=== PATIENT | female | born 1960 | race Caucasian/White ===

== ENCOUNTER → 2022-09-13 | Outpatient (CLI) | payer OTHER, SELFPAY ==
--- NOTE | 2022-09-13 13:46 | BI_ITS ---
MAMMOGRAPHY - BILATERAL SCREENING REASON FOR EXAM: Female, 62 years old. Routine annual screening examination. PERTINENT HISTORY: Non-contributory. History of prior bilateral breast implants. TECHNIQUE: Digital bilateral breast shalini (3D mammographic acquisition) in the CC and MLO projections. 2-D mediolateral oblique (MLO) and craniocaudad (CC) views of both breasts were obtained. CAD: Full Field Digital Mammography with Computer Added Detection was performed. COMPARISON: Comparison is made with prior study dated February 06, 2013. FINDINGS: Breast Composition: There are scattered areas of fibroglandular density. There are no dominant masses or suspicious calcifications. Stable appearance of the bilateral breast implants. No other significant abnormalities are identified. There has been no significant change since the prior study. BI/SCRN MAMM (CAD)W/SHALINI BILAT IMPRESSION: Stable bilateral screening mammogram. Yearly follow-up mammogram recommended. (A) ASSESSMENT CATEGORY: BIRADS Category 2: Benign. A letter regarding these results will be sent to the patient by the facility within 30 days. Approximately 10% of breast cancers are not detected by mammography. A normal mammogram should not delay biopsy of a clinically suspicious abnormality. [id number] Electronically Signed: Jovanni Charles MD at 15:01 EDT ,
--- NOTE | 2022-09-13 13:53 | US_ITS ---
EXAM: US RETROPERITONEAL LIMITED, RENAL CLINICAL INDICATION: HISTORY OF HEMATURIA TECHNIQUE: Limited grayscale and color Doppler sonographic evaluation of the retroperitoneum was performed. COMPARISON: No relevant prior studies available. FINDINGS: RIGHT KIDNEY: Unremarkable. Right kidney measures 11.4 x 4.1 x 3.6 cm in diameter. Normal cortical echogenicity. No hydronephrosis. No shadowing calculus. No focal lesion. No perinephric collection is demonstrated. LEFT KIDNEY: Unremarkable. Left kidney measures 11.5 x 4.4 x 4.9 cm in diameter. Normal cortical echogenicity. No hydronephrosis. No shadowing calculus. No focal lesion. No perinephric collection is demonstrated. URINARY BLADDER: Bilateral ureteral jets are noted. Bladder wall thickness measures up to 3.9 mm. No bladder calculi or focal bladder wall mass. US/Kidney and Bladder IMPRESSION: Unremarkable renal ultrasound. No renal mass, renal calculus or hydronephrosis identified. Electronically Signed: Awais Cervantes MD at 22:49 EDT ,
== END | disposition home or self-care (01) ==
PROVIDERS: PCP Internal Medicine; Referring Provider Internal Medicine; Visit Provider Internal Medicine
DX: Z12.31 Encounter for screening mammogram for malignant neoplasm of breast (principal)
CPT/HCPCS: 76770; 77063; 77067

== ENCOUNTER → 2022-09-23 | Outpatient (CLI) | payer OTHER, SELFPAY ==
--- NOTE | 2022-09-23 12:32 | BD_ITS ---
STUDY: DUAL ENERGY X-RAY ABSORPTIOMETRY / DXA REASON FOR EXAM: Female, 62 years old. 627.8Menopausal postmenopausal BONE DENSITY REASON FOR EXAM TECHNIQUE: Bone Mineral Density (BMD) measurements of lumbar spine and bilateral hips were obtained. COMPARISON: None. FINDINGS: Lumbar Spine (L1-L4): g/cm2 (0.965) / T-score (-1.0) / Z-score (0.6) Findings are suggestive of normal bone density with a low fracture risk. Left Femur Total: g/cm2 (1.004) / T-score (0.5) / Z-score (1.6) Left Femoral Neck: g/cm2 (0.845) / T-score (0.0) / Z-score (1.3) Right Femur Total: g/cm2 (0.925) / T-score (-0.1) / Z-score (0.9) Right Femoral Neck: g/cm2 (0.784) / T-score (-0.6) / Z-score (0.8) BD/Dexa Bone Density Study IMPRESSION: The patient is considered normal as outlined below according to World [employer] Organization (WHO) criteria with a low fracture risk. Reference Information: The T-score is the number of standard deviations above or below the standard which is normal for young adults at their peak bone mineral density. The World Health Organization (WHO) interprets the T-scores as follows: Above -1 Normal bone density Between -1 and -2.5 Osteopenia Equal to / or below -2.5 Osteoporosis As a practical clinical guideline, osteopenia may be graded as follows: Mild -1 through -1.5 Moderate -1.6 through -2.0 Severe -2.1 through -2.4 The Z-score is the number of standard deviations above or below age-matched controls. A Z-score of less than -1.5 would be considered abnormal. References: 1. NIH Osteoporosis and Related Bone Diseases www osteo.org 2. International Society for Clinical Densitometry www iscd.org 3. National Osteoporosis Foundation www nof.org Electronically Signed: Jovanni Charles MD at 13:42 EDT ,
== END | disposition home or self-care (01) ==
LOC: OPBD 12:28
PROVIDERS: PCP Internal Medicine; Referring Provider Internal Medicine; Visit Provider Internal Medicine
DX: Z12.31 Encounter for screening mammogram for malignant neoplasm of breast (principal); Z78.0 Asymptomatic menopausal state; Z87.448 Personal history of other diseases of urinary system
CPT/HCPCS: 77080

== ENCOUNTER → 2024-01-11 | Outpatient (CLI) | payer OTHER, SELFPAY | END | disposition home or self-care (01) | PROVIDERS: PCP Internal Medicine; Referring Provider Internal Medicine; Visit Provider Internal Medicine | DX: Z12.31 Encounter for screening mammogram for malignant neoplasm of breast (principal) | CPT/HCPCS: 77063; 77067 ==

== ENCOUNTER → 2025-01-14 | Outpatient (CLI) | payer OTHER, SELFPAY ==
--- OUTSIDE RECORDS SUMMARY | 2025-01-14 12:52 | XMS RPT_ITS | CCD ---
Author Organization [facility] Care Team Providers Care Individual Small Group Instructor Name Role Phone Unavailable Primary Care Provider Unavailabl e Fast DO, Donita A Unavailable Ovidio RATTLING MACHINE TENDER, Brittney Unavailable Unavailable Fast DO, Donita A Attending Unavailable Fast DO, Donita A Consulting Unavailable Kamilah Jimenez MA Unavailable Unavailable Izabella Patrick Unavailable Slarb AIRLINE RESERVATION AGENT, Samia Unavailable Unavailable Fast DO, Dr. Duckworth Primary Care Provider Dr. Izabella Patrick MD Attending Provider Elmer DO, Dr. Duckworth Referring Provider Milla MOORE, Dr. Romero Attending Provider Fast, Donita Referring Unavailable Heather Loyola Attending Unavailable Fast, Donita Primary Care Unavailable Fast, Donita Referring Unavailable Fast, Donita Primary Care Unavailable Fast, Donita Attending Unavailable Allergies Allergy Classification Reported Allergen(s) Allergy Type Date of Onset Reaction(s) Facility (12 sources) Codeine Drug Allergy 03-18-19 09 Mental Status Change [facility] (2 sources) NITROFURANTOIN, MACROCRYSTALS / Nitrofurantoin, Monohydrate Drug Allergy 09-21-19 [facility] (9 sources) NITROFURANTOIN, MACROCRYSTALS / Nitrofurantoin, Monohydrate Drug Allergy [facility]; [facility] Work Phone: (1 source) Nitrofurantoin Drug Allergy 10-06-19 [facility] (1 source) Adhesive agent Drug allergy (disorder) 10-30-19 [facility] (1 source) Codeine Drug Allergy 10-06-19 [facility] (1 source) Nitrofurantoin Drug Allergy 10-06-19 [facility] Medications Current Medications Medication Drug Class(es) Dates Sig (Normalized) Sig (Original) Bacillus Coagulans-Vitamin D3 (Probiotic (With Vitamin D3)) 2 billion cell- 5 mcg tablet,chewable (1 source) Start: 08-21-2024 Bacillus Coagulans-Vitamin D3 (Probiotic (With Vitamin D3)) 2 billion cell- 5 mcg tablet,chewable Active {tbl} PO August 21, 2024 12:00am doxycycline hyclate 100 mg oral tablet (1 source) Tetracycline-clas s Drug Start: 09-20-2021 End: 09-30-2021 take 1 tablet by mouth twice daily doxycycline (VIBRA-TABS) 100 mg tablet Take 1 tablet by mouth twice daily for 10 days. 20 tablet 0 09/20/2021 09/30/2021 Active Comment on above: Take 1 tablet by [facility] twice daily for 10 days. 168 hr estradiol 0.0025 mg/hr transdermal system (5 sources) Estrogen Start: 10-05-2024 Estradiol 0.06 mg/24 hr patch weekly Active 1 NMA TD EVERY WEEK 4 October 05, 2024 12:00am Start: 02-04-2021 Estradiol (YUV AFEM) 10 mcg vaginal tablet USE 1 TABLET VAGINALLY twice weekly (Tuesday/) insert INTO LOWER 1/3 OF VAGINA 24 tablet 3 02/04/2021 Active Start: 02-04-2021 Estradiol (YUV AFEM) 10 mcg vaginal tablet Use 1 tablet vaginally two times a week. (Tuesday & ) at bedtime 8 tablet 0 02/04/2021 Active Comment on above: USE 1 TABLET VAGINAL LY twice weekly (Tuesday/) insert INTO LOWER 1/3 OF VAGINA Use 1 tablet vaginal ly two times a week. (Tuesday & ) at bedtime Estrogen (1 source) Start: 10-06-19 Estrogen Active PO October 05, 2024 12:00am predniSONE 20 mg oral tablet (1 source) Start: 09-21-19 End: 09-26-19 take 2 tablets by mouth once daily predniSONE (DELTASONE) 20 mg tablet Take 2 tablets by mouth once daily for 5 days. 10 tablet 0 09/20/2021 09/25/2021 Active Comment on above: Take 2 tablets by mo [facility] once daily for 5 days. Completed/Discontinued Medications Medication Drug Class(es) Dates Sig (Normalized) Sig (Original) [id number] 200 actuat albuterol 0.09 mg/actuat metered dose inhaler (2 sources) beta2-Adrenergic Agonist Start: 09-20-2021 take 2 puff(s) by inhalation every six hours as needed albuterol HFA (PROAIR HFA) 90 mcg/actuation inhaler Inhale 2 Puffs as instructed every 6 hours as needed. 1 Inhaler 0 09/20/2021 Active Comment on above: Inhale 2 Puffs as in structed every 6 hours as needed. cholecalciferol 0.05 mg oral capsule (11 sources) Vitamin D Start: 08-26-2014 take 1 capsule by mouth once daily, then take 1 capsule by mouth once daily Cholecalciferol, Vitamin D3, 2,000 unit cap Indications: Perimenopause Take 1 capsule by mouth once daily. one po daily 90 capsule 4 08/26/2014 Active take 1 tablet by mouth once marcelino y Vitamin D3 125 mcg (5,000 unit) oral tablet qd (125 mcg (5,000 uni) Inactive Comment on above: Take 1 capsule by [facility] once daily. one po daily dextromethorphan hydrobromide 3 mg/ml / promethazine hydrochloride 1.25 mg/ml oral solution (2 sources) Phenothiazine, Uncompetitive E-bkybjp-Y-aspartate Receptor Antagonist, Sigma-1 Agonist Start: 022 take 5 mL by mouth every six hours as needed Promethazine-DM (PHENERGAN-DM) 6.25-15 mg/5 mL syrup Take 5 mL by mouth four times daily as needed. 120 mL 0 09/20/2021 Active Comment on above: Take 5 mL by mouth f our times daily as needed. Lactobacillus acidophilus (2 sources) LACTOBACILLUS ACIDOPHILUS (PROBIOTIC ORAL) Take by mouth once daily. 0 Active Comment on above: Take by mouth once d aily. metroNIDAZOLE 500 mg oral tablet (2 sources) Nitroimidazole Antimicrobial Start: 020 take 1 tablet by mouth twice daily, then take 1 tablet by mouth twice daily metroNIDAZOLE (FLAGYL) 500 mg tablet Indications: BV (bacterial vaginosis) Take 1 tablet by mouth twice daily. ONE PO BID FOR VAGINOSIS (NO ALCOHOL USE) 14 tablet 0 11/23/2019 Active Comment on above: Take 1 tablet by [facility] twice daily. ONE PO BID FOR VAGINOSIS (NO ALCOHOL USE) Probiotic 3 billion cell oral capsule (9 sources) take 3 capsules by mouth once daily Probiotic 3 billion cell oral capsule qd (3 billion cell) Active progesterone 100 mg oral capsule (3 sources) Progesterone Start: 025 End: take 1 capsule by mouth once daily Progesterone Micronized 100 mg capsule Discontinued 100 mg PO EVERY EVENING October 05, 2024 4:14pm October 05, 2024 4:15pm take nightly valACYclovir 1000 mg oral tablet (6 sources) Herpesvirus Nucleoside Analog DNA Polymerase Inhibitor, Herpes Simplex Virus Nucleoside Analog DNA Polymerase Inhibitor, Herpes Zoster Virus Nucleoside Analog DNA Polymerase Inhibitor Start: Valtrex 1 gram oral tablet 2 (two) tablet po at onset , then can repeat another tab in 12 hrs for 0 days Quantity: 20 {Tablet} Refills: 1 Ordered: 08-Oct-2022 Brittney Nolan CMA Start : 08-Oct-2022 Active Start: 02-04-2021 take 1 tablet by [facility] twice daily valACYclovir (VALTREX) 500 mg tablet Indications: Cold sores Take 1 tablet by mouth twice daily. FOR 5 DAYS. 10 tablet 5 02/04/2021 Active Comment on above: Take 1 tablet by [facility] twice daily. FOR 5 DAYS. Problems Active Problems Problem Classification Problem Date Documented Date Episodic/Chronic Benign neoplasm of uterus (4 sources) Uterine leiomyoma; Translations: [Leiomyoma of uterus, unspecified] Onset: 10-16-2014 08-26-2014 Episodic Chronic obstructive pulmonary disease and bronchiectasis (1 source) Bronchitis; Translations: [Bronchitis, not specified as acute or chronic] Episodic Disorders of lipid metabolism (2 sources) Hyperlipidemia; Translations: [Hyperlipidemia, unspecified] 08-26-2014 Chronic Endometriosis (2 sources) Uterine adenomyosis; Translations: [Endometriosis of uterus] 10-17-2014 Chronic Genitourinary symptoms and ill-defined conditions (14 sources) History of hematuria; Translations: [History of hematuria] 09-06-2022 Episodic Immunizations and screening for infectious disease (14 sources) Patient encounter status; Translations: [Screening for HPV (human papillomavirus) (Renamed from Encounter for screening for human papillomavirus (HPV))] Resolved: 11-12-2022 09-06-2022 Episodic Inflammatory diseases of female pelvic organs (2 sources) Bacterial vaginosis; Translations: [Acute vaginitis] 11-23-2019 Episodic Menopausal disorders (3 sources) Menopausal symptom; Translations: [Menopausal and female climacteric states] Onset: 08-21-2014 08-26-2014 Chronic Other diseases of bladder and urethra (14 sources) Polyp of urethra; Translations: [Urethral polyp] 09-06-2022 Episodic Other female genital disorders (14 sources) History of abnormal cervical Papanicolaou smear ; Translations: [History of abnormal cervical Pap smear] 09-06-2022 Episodic Other nutritional; endocrine; and metabolic disorders (20 sources) Hypercalcemia; Translations: [Hypercalcemia] Resolved: 11-14-2022 07-07-2022 Chronic Other screening for suspected conditions (not mental disorders or infectious disease) (20 sources) Breast neoplasm screening status; Translations: [Encounter for screening mammogram for malignant neoplasm of breast] Onset: 08-21-2014 08-21-2014 Episodic Comment on above: discusse diet ane ex her myeloperoxidase high too so want her to get cardiac calcium score Other skin disorders (19 sources) Night sweats; Translations: [Night sweats] 07-06-2022 Episodic Comment on above: discussed hormone re placement options Residual codes; unclassified (20 sources) Body mass index 20-24 - normal; Translations: [BMI 24.0-24.9, adult] 07-06-2022 Episodic Residual codes; unclassified (20 sources) Non-smoker; Translations: [Nonsmoker] 07-06-2022 Episodic Residual codes; unclassified (14 sources) Postmenopausal state; Translations: [Postmenopausal (Renamed from Postmenopausal status)] Resolved: 11-12-2022 09-06-2022 Episodic Unclassified (20 sources) Unclassified (6 sources) [facility] WELLNESS EXAM 11-12-2022 Viral infection (8 sources) Herpes labialis; Translations: [Cold sore] 10-08-2022 Episodic Past or Other Problems Problem Classification Problem Date Documented Da te Episodic/Chronic Residual codes; unclassified (2 sources) Menopause present; Translations: [Asymptomatic menopausal state] Onset: 02-04-2021 02-04-2021 Episodic Unclassified (9 sources) Pregnancies (); Translations: [Pregnancies ()] 07-06-2022 Comment on above: 3 c-sections (daught ers) NEGATED: Highlighted row has been ruled out!Unclassified (3 sources) Problem Onset: 07-06-2022 07-06-2022 Results Test Name Value Interpretation Reference Range Facility Video System Repairer Office Visit Reporton 10-05-2024 Video System Repairer Office Visit Report [facility]'s [address], [address] [place] [address] OFFICE VISIT Date of Service: 10/05/24 MR#: [id number] Acct: [id number] Name: EM CONTRERAS Rep #: [id number] : 1960 Provider: Dr. Heather de jesus MD Age/Sex: 64/F [place] [facility] [place] Status: Signed Intake Vital Signs 10/05/24 14:59 Height 5 ft 6 in Weight: 155 lb BMI 25.0 BP 136/80 H Intake Visit Reasons: HRT Consult Oil Spot Washer Required: No Is patient in pain?: No Allergies codeine Allergy (Severe, Verified 10/05/24 15:00) Vomiting nitrofurantoin (From Macrobid) Allergy (Severe, Verified 10/05/24 15:00) Hives Medications ???Medication ???Instructions ???Recorded ???Confirmed ???Type Bacillus coagulans 2 billion tab PO 08/21/24 10/05/24 History cell-vitamin D3 5 mcg chewable tablet (Probiotic (with Vitamin D3)) Estrogen PO 10/05/24 10/05/24 History estradiol 0.06 mg/24 hr weekly 1 patch transdermal QWEEK #4 10/0510/05/24 Rx transdermal patch patches progesterone micronized 100 mg 100 mg PO QPM #30 caps 10/05/24 Rx capsule Is last menstrual period known: No Post menopausal: Yes Patient : No : No PFSH Surgical History H/O blepharoplasty Family History Mother Arthritis Parkinson disease Social History household members: spouse number of children: 3 current occupational status: retired Smoking Status: Never smoker alcohol intake: current alcohol intake frequency: 0-2 drinks per day Alcohol type: wine substance use type: does not use what type of physical activity do you participate in: other details: tennis, pickleball, golf, lifting frequency: daily seatbelt use: always do you feel safe at home: Yes additional social history: - Wilian HPI HRT Consult Details: EM CONTRERAS is a 64 year old who presents for hormonally feeling out of balance. she was 58 when she went through menopause. she was 58 when she had her last menses. She used to see Dr Hernandez. she had not been on HRT, and she talked about bioidentical HRT starting a year ago was having vasomotor symptoms and weight increases so she went on bioHRT by dr payne estrogen testosterone and progesterone. she is having a reduction in symptoms. she has gained ten pounds in the lsat year or two. she is wanting to improve symptoms in multiple organ systems and has been happy with her results on the bioidentical hormones but is open to trying something else if it is more safe and recommended. Female Reproductive History Menopausal Symptoms: No night sweats History 3 Elective abortions Hx Para 3 Spontaneous abortions Hx # Term Pregnancies Ectopic pregnancies Hx # Pregnancies Multiple births # of living children 3 Past Pregnancies Del. Date Name GA/Weeks Outcome Route Bth Weight Infant Gen Labor Lgth Anesthesia Del Locatn Provider FOB Unknown 1982 Kassie Unknown 1986 Ashley Unknown 1987 Alie ROS Const Constitutional: Denies fatigue, night sweats, weight gain or weight loss ENT ENT: Reports system reviewed and no additional complaints, except as documented Cardio Card: Denies chest pain Resp Resp: Denies cough or dyspnea GI GI: Reports as per HPI; Denies abdominal pain, constipation, nausea or vomiting : Denies nipple discharge, urinary frequency, urinary incontinence, urinary hesitancy, urinary urgency, vaginal discharge, vaginal dryness, vaginal odor or vaginal pruritus Musc Musc: Denies arthralgias, back pain or muscle weakness Skin Skin/Breast: Denies alopecia, change in hair, dry skin, breast mass, breast pain, breast skin changes or nipple discharge Neuro Neuro: Reports system reviewed and no additional complaints, except as documented Psych Psych: Reports system reviewed and no additional complaints, except as documented Endo Endo: Denies cold intolerance, excessive sweating, heat intolerance or polydipsia Ahmet/Lymph Hematologic/Lymphatic: Denies easy bleeding, Denies easy bruising and Denies lymphadenopathy Exam Const General: cooperative, healthy appearing, comfortable and no acute distress Orientation: alert HENMT Head: normal to inspection and normocephalic Ears: hearing grossly normal bilaterally and external ears normal Nose: external nose normal and nares normal Face and sinus: normal facial exam Neck Neck: normal visual inspection and no lymphadenopathy Thyroid: thyroid normal Chest Chest palpation inspection: normal inspection of the chest Resp Effort Inspection: normal respiratory effort Auscultatio (more content not included)... Normal [facility] SCRN MAMM (CAD)W/SHALINI BILATo n 01-11-2024 SCRN MAMM (CAD)W/SHALINI BILAT [facility] Imaging Services [address] [place] [address] [id number] SCRN MAMM (CAD)W/SHALINI BILAT MR#: [id number] Acct: [id number] Name: EM CONTRERAS Rep #: [id number] : 1960 F 63 From: Jovanni bustos MD PCP: Dr. Donita Payne DO Status: REG [facility] Study: SCRN MAMM (CAD)W/SHALINI BILAT Date of Exam: 12/23 Exam# [id number] [place]: [place] [id number] MAMMOGRAPHY - BILATERAL SCREENING REASON FOR EXAM: Female, 63 years old. Routine annual screening examination. PERTINENT HISTORY: Non-contributory. Bilateral breast implants. TECHNIQUE: Digital bilateral breast shalini (3D mammographic acquisition) in the CC and MLO projections. 2-D mediolateral oblique (MLO) and craniocaudad (CC) views of both breasts were obtained. CAD: Full Field Digital Mammography with Computer Added Detection was performed. COMPARISON: Comparison is made with prior study September 13, 2022. FINDINGS: Breast Composition: There are scattered areas of fibroglandular density. There are no dominant masses or suspicious calcifications. Stable bilateral breast implants. Stable benign-appearing left axillary lymph node. No other significant abnormalities are identified. There has been no significant change since the prior study. BI/SCRN MAMM (CAD)W/SHALINI BILAT IMPRESSION: Stable bilateral screening mammogram. Yearly follow-up mammogram recommended. (A) ASSESSMENT CATEGORY: BIRADS Category 2: Benign. A letter regarding these results will be sent to the patient by the facility within 30 days. Approximately 10% of breast cancers are not detected by mammography. A normal mammogram should not delay biopsy of a clinically suspicious abnormality. [id number] Electronically Signed: Jovanni Charles MD at 11:22 EST , CC: Dr. Donita Payne, Kiosk Sales Representative: Signed Normal [facility] HPV automatic ([id number])Ordered By: Purse Maker on 09-06-2022 HPV automatic ([id number]) [facility] Normal [facility]; [facility] Work Phone: Comment on above: NEGATIVE FOR INTRAEP ITHELIAL LESION OR MALIGNANCY.Satisfactory for evaluation. Endocervical and/or squamous metaplasticcells (endocervical component) are present.Z11.51Susan Dorantes Senior Ssis Developer (ASCP) No. of containers..0 1 ThinPrep VialPERFORMED BY: WB [facility] [address] [id number] BY: =G [facility] [address] [id number] Information: [id number] HPV automatic ([id number]) . Normal [facility]; [facility] Work Phone: Comment on above: No. of containers..0 1 ThinPrep VialPERFORMED BY: WB [facility] Wrdoitcpzq[address] [id number] BY: =G [facility] Xx[address]ax[address] PlazaFab[address] [id number] Information: [id number] HPV automatic (23539) PAPSMR Normal [facility]; [facility] Work Phone: Comment on above: The Pap smear is a s creening test designed to aid in the detection ofpremalignant and malignant conditions of the uterine cervix. It is not adiagnostic procedure and should not be used as the sole means of detectingcervical cancer. Both false-positive and false-negative reports do occur. .This liquid based ThinPrep(R) pap test was screened with theuse of an image guided system. No. of containers..0 1 ThinPrep VialPERFORMED BY: WB [facility] Gdchuogksp[address] [id number] BY: =G [facility] [address] PlazaFab[address] [id number] Information: [id number] HPV automatic (45944) Negative Normal [facility]; [facility] Work Phone: Comment on above: This nucleic acid am plification test detects fourteen high- riskHPV types (16,18,31,33,35,39,45,51,52,56,58,59,66,68) withoutdifferentiation. No. of containers..0 1 ThinPrep VialPERFORMED BY: WB [facility] X[address]vjc[address] [id number] BY: =G [facility] [address] [place] [id number] Information: [id number] URINE TASIA CULTURE-IDENTIFICA [place] ([id number])Ordered By: Purse Maker on 09-06-2022 Bacteria identified Cx Nom (U) Final report Normal [facility]; [facility] Work Phone: Comment on above: PERFORMED BY: [facility] [id number] Information: SRC:UR Bacteria identified Cx Nom (U) MUG Normal [facility]; [facility] Work Phone: Comment on above: Mixed urogenital felipe ra10,000-25,000 colony forming units per mL PERFORMED BY: [facility] [id number] Information: SRC:UR Urinalysis, Office ([id number])on 09-06-2022 Bilirubin Ql (U) Negative Normal Comprehe nsive [facility]; [facility] Work Phone: Glucose Test strip (U) [Mass/Vol] Negative Normal [facility]; [facility] Work Phone: Hemoglobin Ql (U) + Abnormal Compreh ensive [facility]; [facility] Work Phone: Ketones Ql (U) Negative Normal Comprehens ev [facility]; [facility] Work Phone: Leukocyte esterase Test strip Ql (U) Moderate Normal [facility]; [facility] Work Phone: Nitrite Ql (U) Negative Normal [facility]prehens [facility]; [facility] Work Phone: pH (U) 6.0 [pH] Normal [facility]; [facility] Work Phone: Protein Ql (U) Negative Normal Comprehens [facility]; [facility] Work Phone: Specific gravity (U) [Rel density] 1.010 1 Normal [facility]; [facility] Work Phone: Urobilinogen (24H U) [Mass/Time] Normal Normal [facility]; [facility] Work Phone: CBC, PLATELETS & MANUAL DIFF ([id number])Ordered By: Purse Maker on 09-03-2022 Basophils (Bld) [#/Vol] 0.0 10*3/uL Normal 0.0-0.2 [facility]; [facility] Work Phone: Comment on above: PATIENT NOT FASTINGP ERFORMED BY: CB [facility] Meocfx[address] [place] [id number] Basophils/100 WBC (Bld) 1 % Normal [facility]; [facility] Work Phone: Comment on above: PATIENT NOT FASTINGP ERFORMED BY: CB [facility] Mousdj[address] [place] [id number] Eosinophils (Bld) [#/Vol] 0.2 10*3/uL Normal 0.0-0.4 [facility]; [facility] Work Phone: Comment on above: PATIENT NOT FASTINGP ERFORMED BY: CB [facility] [id number] [place] [id number] Eosinophils/100 WBC (Bld) 4 % Normal [facility]; [facility] Work Phone: Comment on above: PATIENT NOT FASTINGP ERFORMED BY: CB [facility] [id number] [place] [id number] Erythrocyte distribution width (RBC) [Ratio] 12.3 % Normal 11.7-15.4 [facility]; [facility] Work Phone: Comment on above: PATIENT NOT FASTINGP ERFORMED BY: CB [facility] Dwjatr[address] [place] [id number] Hematocrit (Bld) [Volume fraction] 40.7 % Normal 34.0-46.6 [facility]; [facility] Work Phone: Comment on above: PATIENT NOT FASTINGP ERFORMED BY: CB [facility] [id number] [place] [id number] Hemoglobin (Bld) [Mass/Vol] 13.4 g/dL Normal 11.1-15.9 [facility]; [facility] Work Phone: Comment on above: PATIENT NOT FASTINGP ERFORMED BY: CB [facility] Vtenpo[address] [place] [id number] Immature granulocytes (Bld) [#/Vol] 0.0 10*3/uL Normal 0.0-0.1 [facility]; [facility] Work Phone: Comment on above: PATIENT NOT FASTINGP ERFORMED BY: VALORIE Torres[address]Dublin [place] [id number] Immature granulocytes/100 WBC (Bld) 0 % Normal [facility]; [facility] Work Phone: Comment on above: PATIENT NOT FASTINGP ERFORMED BY: CB [facility] Ljkjut[address] [place] [id number] Lymphocytes (Bld) [#/Vol] 1.4 10*3/uL Normal 0.7-3.1 [facility]; [facility] Work Phone: Comment on above: PATIENT NOT FASTINGP ERFORMED BY: VALORIE [facility] Ejdscm[address] RoadFormerly [facility] Carein [place] [id number] Lymphocytes/100 WBC (Bld) 32 % Normal [facility]; [facility] Work Phone: Comment on above: PATIENT NOT FASTINGP ERFORMED BY: [facility] Awknva[address] [facility] [place] [id number] MCH (RBC) [Entitic mass] 32.1 pg Normal 26.6-33.0 [facility]; [facility] Work Phone: Comment on above: PATIENT NOT FASTINGP ERFORMED BY: [facility] Stxlzv[address] [facility] [place] [id number] MCHC (RBC) [Mass/Vol] 32.9 g/dL Normal 31.5-35.7 [facility]; [facility] Work Phone: Comment on above: PATIENT NOT FASTINGP ERFORMED BY: CB [facility] [id number] [facility] HospitalDublin [place] [id number] MCV (RBC) [Entitic vol] 97 fL Normal 79-97 [facility]; [facility] Work Phone: Comment on above: PATIENT NOT FASTINGP ERFORMED BY: CB [facility] Izlqfb4[address] RoadDublin [place] [id number] Monocytes (Bld) [#/Vol] 0.3 10*3/uL Normal 0.1-0.9 [facility]; [facility] Work Phone: Comment on above: PATIENT NOT FASTINGP ERFORMED BY: VALORIE Labcoclaudine TorresKbyzsh7357 Camp RoadDublin [place] [id number] Monocytes/100 WBC (Bld) 8 % Normal [facility]; [facility] Work Phone: Comment on above: PATIENT NOT FASTINGP ERFORMED BY: CB [facility] Qcyzeo0102 [address] RoadDublin [place] [id number] Neutrophils (Bld) [#/Vol] 2.4 10*3/uL Normal 1.4-7.0 [facility]; [facility] Work Phone: Comment on above: PATIENT NOT FASTINGP ERFORMED BY: [facility] Goleum3[address]Dublin [place] [id number] Neutrophils/100 WBC (Bld) 55 % Normal [facility]; [facility] Work Phone: Comment on above: PATIENT NOT FASTINGP ERFORMED BY: [facility] Anrimm5[address] RoadDublin [place] [id number] Platelets (Bld) [#/Vol] 212 10*3/uL Normal 150-450 [facility]; [facility] Work Phone: Comment on above: PATIENT NOT FASTINGP ERFORMED BY: CB [facility] Uobqsq2933 [address] RoadDublin [place] [id number] RBC (Bld) [#/Vol] 4.18 10*6/uL Normal 3.77-5.28 Compr ehensive [facility]; [facility] Work Phone: Comment on above: PATIENT NOT FASTINGP ERFORMED BY: CB [facility] Yzjsvy8522 [address] RoadDublin [place] [id number] WBC (Bld) [#/Vol] 4.3 10*3/uL Normal 3.4-10.8 Compre hensive [facility]; [facility] Work Phone: Comment on above: PATIENT NOT FASTINGP ERFORMED BY: CB [facility] Cuihhl025[address]Dublin [place] [id number] METABOLIC PANEL, COMPREHENSI VE ([id number])Ordered By: Purse Maker on 09-03-2022 Albumin [Mass/Vol] 4.5 g/dL Normal 3.9-4.9 [facility]; [facility] Work Phone: Comment on above: Please note refere nce interval change PATIENT NOT FASTINGP ERFORMED BY: CB [facility] Htimgs23[address]Dublin [place] [id number] Albumin/Globulin [Mass ratio] 2.0 {ratio} Normal 1.2-2.2 [facility]; [facility] Work Phone: Comment on above: PATIENT NOT FASTINGP ERFORMED BY: CB [facility] Pnfpah0595 [address] RoadDublin [place] [id number] ALP [Catalytic activity/Vol] 73 U/L Normal 44-121 [facility]; [facility] Work Phone: Comment on above: PATIENT NOT FASTINGP ERFORMED BY: CB [facility] Tolfxt7[address] RoadDublin [place] [id number] ALT [Catalytic activity/Vol] 12 U/L Normal 0-32 [facility]; [facility] Work Phone: Comment on above: PATIENT NOT FASTINGP ERFORMED BY: CB [facility] Edkudk3268 [address] RoadDublin [place] [id number] AST [Catalytic activity/Vol] 21 U/L Normal 0-40 [facility]; [facility] Work Phone: Comment on above: PATIENT NOT FASTINGP ERFORMED BY: CB [facility] Bopxjz8500 [address] RoadDublin [place] [id number] Bilirubin [Mass/Vol] 0.7 mg/dL Normal 0.0-1.2 [facility]; [facility] Work Phone: Comment on above: PATIENT NOT FASTINGP ERFORMED BY: CB [facility] Gonypq5446 [address] RoadDublin [place] [id number] Calcium [Mass/Vol] 9.6 mg/dL Normal 8.7-10.3 [facility]; [facility] Work Phone: Comment on above: PATIENT NOT FASTINGP ERFORMED BY: VALORIE Labcoclaudine Cdszff4[address] RoadDublin [place] [id number] Chloride [Moles/Vol] 104 mmol/L Normal 96-106 [facility]; [facility] Work Phone: Comment on above: PATIENT NOT FASTINGP ERFORMED BY: CB [facility] Qnmkke9[address] RoadDublin [place] [id number] CO2 [Moles/Vol] 24 mmol/L Normal 20-29 Comprehen [facility]; [facility] Work Phone: Comment on above: PATIENT NOT FASTINGP ERFORMED BY: VALORIE Labcoclaudine EsquedaDpppjj5486 [address] RoadDublin [place] [id number] Creatinine [Mass/Vol] 0.99 mg/dL Normal 0.57-1.00 [facility]; [facility] Work Phone: Comment on above: PATIENT NOT FASTINGP ERFORMED BY: VALORIE [facility] Oveofl04[address] RoadDublin [place] [id number] GFR/1.73 sq M.predicted among non-blacks MDRD (S/P/Bld) [Vol rate/Area] 64 mL/min/{1.73_m2} Normal Comprehensiv e [facility]; [facility] Work Phone: Comment on above: PATIENT NOT FASTINGP ERFORMED BY: VALORIE [facility] Vtprqy3485 [address] RoadDublin [place] [id number] Globulin (S) [Mass/Vol] 2.3 g/dL Normal 1.5-4.5 [facility]; [facility] Work Phone: Comment on above: PATIENT NOT FASTINGP ERFORMED BY: CB [facility] Ngoclf0337 [address] RoadDublin [place] [id number] Glucose [Mass/Vol] 91 mg/dL Normal 70-99 [facility]; [facility] Work Phone: Comment on above: PATIENT NOT FASTINGP ERFORMED BY: CB [facility] Extpaq9[address] RoadDublin [place] [id number] Potassium [Moles/Vol] 4.5 mmol/L Normal 3.5-5.2 [facility]; [facility] Work Phone: Comment on above: PATIENT NOT FASTINGP ERFORMED BY: VALORIE Torres6370 [facility] [id number] Protein [Mass/Vol] 6.8 g/dL Normal 6.0-8.5 [facility]; [facility] Work Phone: Comment on above: PATIENT NOT FASTINGP ERFORMED BY: VALORIE [facility] Czizoy6120 [facility] [id number] Sodium [Moles/Vol] 141 mmol/L Normal 134-144 [facility]; [facility] Work Phone: Comment on above: PATIENT NOT FASTINGP ERFORMED BY: VALORIE Tyrell Ejsbgj3017 [facility] [id number] Urea nitrogen [Mass/Vol] 16 mg/dL Normal 8-27 [facility]; [facility] Work Phone: Comment on above: PATIENT NOT FASTINGP ERFORMED BY: VALORIE [facility] Wtltqf9600 [facility] [id number] Urea nitrogen/Creatini ne [Mass ratio] 16 mg/mg Normal 12-28 [facility]; [facility] Work Phone: Comment on above: PATIENT NOT FASTINGP ERFORMED BY: VALORIE [facility] Rsibna6601 [facility] [id number] CBC, PLATELETS & MANUAL DIFF ([id number])Ordered By: Purse Maker on 07-06-2022 Basophils (Bld) [#/Vol] 0.0 10*3/uL Normal 0.0-0.2 [facility]; [facility] Work Phone: Comment on above: PATIENT WAS FASTINGP ERFORMED BY: VALORIE [facility] Zezxbw1005 [facility]in [place] [id number] Basophils/100 WBC (Bld) 1 % Normal [facility]; [facility] Work Phone: Comment on above: PATIENT WAS FASTINGP ERFORMED BY: [facility] Ywdish7[address]Dublin [place] [id number] Eosinophils (Bld) [#/Vol] 0.1 10*3/uL Normal 0.0-0.4 [facility]; [facility] Work Phone: Comment on above: PATIENT WAS FASTINGP ERFORMED BY: [facility] Kgohbe7[address] RoadD[address] [place] [id number] Eosinophils/100 WBC (Bld) 2 % Normal [facility]; [facility] Work Phone: Comment on above: PATIENT WAS FASTINGP ERFORMED BY: [facility] Pxuyue5[address] RoadD[place] [id number] Erythrocyte distribution width (RBC) [Ratio] 12.2 % Normal 11.7-15.4 [facility]; [facility] Work Phone: Comment on above: PATIENT WAS FASTINGP ERFORMED BY: [facility] Hlxsdv6[address] RoadFormerly [facility] Carein [place] [id number] Hematocrit (Bld) [Volume fraction] 41.4 % Normal 34.0-46.6 [facility]; [facility] Work Phone: Comment on above: PATIENT WAS FASTINGP ERFORMED BY: [facility] Sphliu93[address] Roadblin [place] [id number] Hemoglobin (Bld) [Mass/Vol] 14.4 g/dL Normal 11.1-15.9 [facility]; [facility] Work Phone: Comment on above: PATIENT WAS FASTINGP ERFORMED BY: [facility] Ybokmg3473 [address] RoadDublin [place] [id number] Immature granulocytes (Bld) [#/Vol] 0.0 10*3/uL Normal 0.0-0.1 [facility]; [facility] Work Phone: Comment on above: PATIENT WAS FASTINGP ERFORMED BY: [facility] Yubqkk6301 [address] RoadD[place] [id number] Immature granulocytes/100 WBC (Bld) 0 % Normal [facility]; [facility] Work Phone: Comment on above: PATIENT WAS FASTINGP ERFORMED BY: [facility] Irmgta0597 [address] RoadD[place] [id number] Lymphocytes (Bld) [#/Vol] 1.6 10*3/uL Normal 0.7-3.1 [facility]; [facility] Work Phone: Comment on above: PATIENT WAS FASTINGP ERFORMED BY: [facility] Oqsuou97[address] RoadDublin [place] [id number] Lymphocytes/100 WBC (Bld) 34 % Normal [facility]; [facility] Work Phone: Comment on above: PATIENT WAS FASTINGP ERFORMED BY: [facility] Ahxnyv4837 [address] RoadD[place] [id number] MCH (RBC) [Entitic mass] 32.7 pg Normal 26.6-33.0 [facility]; [facility] Work Phone: Comment on above: PATIENT WAS FASTINGP ERFORMED BY: [facility] Vvqvfc4975 [address] RoadDublin [place] [id number] MCHC (RBC) [Mass/Vol] 34.8 g/dL Normal 31.5-35.7 [facility]; [facility] Work Phone: Comment on above: PATIENT WAS FASTINGP ERFORMED BY: [facility] Qgbirl6179 [address] RoadD[place] [id number] MCV (RBC) [Entitic vol] 94 fL Normal 79-97 [facility]; [facility] Work Phone: Comment on above: PATIENT WAS FASTINGP ERFORMED BY: [facility] Kklcqe1512 [address] RoadD[place] [id number] Monocytes (Bld) [#/Vol] 0.6 10*3/uL Normal 0.1-0.9 [facility]; [facility] Work Phone: Comment on above: PATIENT WAS FASTINGP ERFORMED BY: [facility] Usnuck6959 [address] RoadD[place] [id number] Monocytes/100 WBC (Bld) 12 % Normal [facility]; [facility] Work Phone: Comment on above: PATIENT WAS FASTINGP ERFORMED BY: VALORIE [facility] Tgpycj6644 [address] RoadD[address] [place] [id number] Neutrophils (Bld) [#/Vol] 2.4 10*3/uL Normal 1.4-7.0 [facility]; [facility] Work Phone: Comment on above: PATIENT WAS FASTINGP ERFORMED BY: VALORIE [facility] Ltzzyt3430 [address] RoadD[place] [id number] Neutrophils/100 WBC (Bld) 51 % Normal [facility]; [facility] Work Phone: Comment on above: PATIENT WAS FASTINGP ERFORMED BY: VALORIE [facility] Gqxklp0838 [address] RoadD[place] [id number] Platelets (Bld) [#/Vol] 229 10*3/uL Normal 150-450 [facility]; [facility] Work Phone: Comment on above: PATIENT WAS FASTINGP ERFORMED BY: VALORIE [facility] Mjyebk2877 [address] RoadD[place] [id number] RBC (Bld) [#/Vol] 4.40 10*6/uL Normal 3.77-5.28 Compr [facility]; [facility] Work Phone: Comment on above: PATIENT WAS FASTINGP ERFORMED BY: VALORIE [facility] Jeoztr4457 [address] RoadD[place] [id number] WBC (Bld) [#/Vol] 4.7 10*3/uL Normal 3.4-10.8 Compre [facility]; [facility] Work Phone: Comment on above: PATIENT WAS FASTINGP ERFORMED BY: VALORIE [facility] Kakwqz3220 [address] RoadD[place] [id number] METABOLIC PANEL, COMPREHENSI VE ([id number])Ordered By: Purse Maker on 07-06-2022 Albumin [Mass/Vol] 4.7 g/dL Normal 3.8-4.8 [facility]; [facility] Work Phone: Comment on above: PATIENT WAS FASTINGP ERFORMED BY: VALORIE [facility] Wclsdx2589 [address] RoadD[address] [place] [id number] Albumin/Globulin [Mass ratio] 1.9 {ratio} Normal 1.2-2.2 [facility]; [facility] Work Phone: Comment on above: PATIENT WAS FASTINGP ERFORMED BY: VALORIE [facility] Zzsprv9249 [address] RoadD[address] [place] [id number] ALP [Catalytic activity/Vol] 77 U/L Normal 44-121 [facility]; [facility] Work Phone: Comment on above: PATIENT WAS FASTINGP ERFORMED BY: VALORIE [facility] Mlvqlv2055 [address] RoadD[place] [id number] ALT [Catalytic activity/Vol] 11 U/L Normal 0-32 [facility]; [facility] Work Phone: Comment on above: PATIENT WAS FASTINGP ERFORMED BY: VALORIE [facility] Isizjd7648 [address] RoadD[place] [id number] AST [Catalytic activity/Vol] 17 U/L Normal 0-40 [facility]; [facility] Work Phone: Comment on above: PATIENT WAS FASTINGP ERFORMED BY: VALORIE [facility] Qjvzyl1426 [address] RoadDublin [place] [id number] Bilirubin [Mass/Vol] 0.5 mg/dL Normal 0.0-1.2 [facility]; [facility] Work Phone: Comment on above: PATIENT WAS FASTINGP ERFORMED BY: [facility] Juwqlj7040 [address] RoadD[address] [place] [id number] Calcium [Mass/Vol] 10.5 mg/dL Abnormal 8.7-10.3 [facility]; [facility] Work Phone: Comment on above: PATIENT WAS FASTINGP ERFORMED BY: [facility] Tgtact0079 [address] RoadD[address] [place] [id number] Chloride [Moles/Vol] 101 mmol/L Normal 96-106 [facility]; [facility] Work Phone: Comment on above: PATIENT WAS FASTINGP ERFORMED BY: VALORIE [facility] Uiahts5811 [address] RoadD[address] [place] [id number] CO2 [Moles/Vol] 24 mmol/L Normal 20-29 Comprehen sive Internal Medicine; [facility] Work Phone: Comment on above: PATIENT WAS FASTINGP ERFORMED BY: [facility] Hsfvbt4020 [address] RoadD[place] [id number] Creatinine [Mass/Vol] 1.03 mg/dL Abnormal 0.57-1.00 [facility]; [facility] Work Phone: Comment on above: PATIENT WAS FASTINGP ERFORMED BY: [facility] [facility]in [place] [id number] GFR/1.73 sq M.predicted among non-blacks MDRD (S/P/Bld) [Vol rate/Area] 61 mL/min/{1.73_m2} Normal Comprehensiv e Internal [facility]; [facility] Work Phone: Comment on above: PATIENT WAS FASTINGP ERFORMED BY: [facility] [facility]in [place] [id number] Globulin (S) [Mass/Vol] 2.5 g/dL Normal 1.5-4.5 [facility]; [facility] Work Phone: Comment on above: PATIENT WAS FASTINGP ERFORMED BY: LabHawth[facility] Psych[facility] HospitalWommtb[address] [facility] HospitalD[place] [id number] Glucose [Mass/Vol] 86 mg/dL Normal 70-99 [facility]; [facility] Work Phone: Comment on above: PATIENT WAS FASTINGP ERFORMED BY: [facility] Ozenfz[address] [facility] Centerblin [place] [id number] Potassium [Moles/Vol] 4.2 mmol/L Normal 3.5-5.2 [facility]; [facility] Work Phone: Comment on above: PATIENT WAS FASTINGP ERFORMED BY: [facility] Jqvqcl[address] [facility] [address] HospitalD[place] [id number] Protein [Mass/Vol] 7.2 g/dL Normal 6.0-8.5 [facility]; [facility] Work Phone: Comment on above: PATIENT WAS FASTINGP ERFORMED BY: CB [facility] Zwxccv2070 [address] RoadD[address] [place] [id number] Sodium [Moles/Vol] 140 mmol/L Normal 134-144 [facility]; [facility] Work Phone: Comment on above: PATIENT WAS FASTINGP ERFORMED BY: CB [facility] Wpzyci6590 [address] RoadD[address] [place] [id number] Urea nitrogen [Mass/Vol] 26 mg/dL Normal 8-27 [facility]; [facility] Work Phone: Comment on above: PATIENT WAS FASTINGP ERFORMED BY: CB [facility] Wmzntz8842 [address] RoadDublin [place] [id number] Urea nitrogen/Creatini ne [Mass ratio] 25 mg/mg Normal 12-28 [facility]; [facility] Work Phone: Comment on above: PATIENT WAS FASTINGP ERFORMED BY: CB [facility] Grgeis4570 [address] RoadD[address] [place] [id number] TSH ([id number])Ordered By: Troye m Product Management Manager on 07-06-2022 TSH Qn 2.730 {uIU/mL} Normal 0.450-4.500 [facility] Internal Medicine; [facility] Work Phone: Comment on above: PATIENT WAS FASTINGP ERFORMED BY: CB [facility] Iwjmoo9203 [address]Dublin [place] [id number] Vital Signs Date Time Vital Sign Value Performing Clinician Facility 10-05-2024 14:59-0400 Body height 167.[address] Duckworth Fast DO Work Phone: [facility] 10-05-2024 14:59-0400 Body mass index (BMI) [Ratio] 25 kg/m2 Dr. Donita Payne DO Work Phone: [facility] 10-05-2024 14:59-0400 Body weight 70.[address] Donita Payne DO Work Phone: [facility] 10-05-2024 14:59-0400 Diastolic blood pressure 80 mm[Hg] Dr. Donita Payne DO Work Phone: [facility] 10-05-2024 14:59-0400 Systolic blood pressure 136 mm[Hg] Dr. Donita Payne DO Work Phone: [facility] 11-12-2022 10:05-0400 Body height 165.74 cm Brittney Nolan [facility]; [facility] Work Phone: 11-12-2022 10:05-0400 Body mass index (BMI) [Ratio] 24.94 kg/m2 Brittney Nolan [facility]; [facility] Work Phone: 11-12-2022 10:05-0400 Body surface area Derived from formula 1.76 m2 Brittney Nolan [facility]; [facility] Work Phone: 11-12-2022 10:05-0400 Body temperature 97.6 [degF] Brittney Nolan [facility]; [facility] Work Phone: Comment on above: Method: Thermal Scan 11-12-2022 10:05-0400 Body weight 68.49 kg Brittney Nolan [facility]; [facility] Work Phone: 11-12-2022 10:05-0400 Diastolic blood pressure 70 mm[Hg] Brittneylydia Nolan [facility]; [facility] Work Phone: Comment on above: Patient Position: Sitting; Cuff Location : Left Arm; Cuff Size: Standard 11-12-2022 10:05-0400 Heart rate 68 /min Brittney Nolan [facility]; [facility] Work Phone: Comment on above: Pattern: Regular 11-12-2022 10:05-0400 Respiratory rate 16 /min Brittney Nolan [facility]; [facility] Work Phone: Comment on above: Pattern: Unlabored 11-12-2022 10:05-0400 Systolic blood pressure 118 mm[Hg] Brittney Nolan [facility]; [facility] Work Phone: Comment on above: Patient Position: Sitting; Cuff Location : Left Arm; Cuff Size: Standard 09-06-2022 10:26-0400 Body height 165.74 cm Brittney Nolan [facility]; [facility] Work Phone: 09-06-2022 10:26-0400 Body mass index (BMI) [Ratio] 24.94 kg/m2 Brittney Nolan [facility]; [facility] Work Phone: 09-06-2022 10:26-0400 Body surface area Derived from formula 1.76 m2 Brittney Nolan [facility] Internal Medicine; [facility] Work Phone: 09-06-2022 10:26-0400 Body temperature 97.8 [degF] Brittney Nolan [facility]; [facility] Work Phone: Comment on above: Method: Thermal Scan 09-06-2022 10:26-0400 Body weight 68.49 kg Brittney Nolan [facility]; [facility] Work Phone: 09-06-2022 10:26-0400 Diastolic blood pressure 62 mm[Hg] Brittney Nolan [facility]; [facility] Work Phone: Comment on above: Patient Position: Sitting; Cuff Location : Left Arm; Cuff Size: Standard 09-06-2022 10:26-0400 Heart rate 74 /min Brittney Nolan [facility]; [facility] Work Phone: Comment on above: Pattern: Regular 09-06-2022 10:26-0400 Respiratory rate 16 /min Brittney Nolan [facility]; [facility] Work Phone: Comment on above: Pattern: Unlabored 09-06-2022 10:26-0400 SaO2% (BldA) [Mass fraction] 99 % Brittney Nolan [facility]; [facility] Work Phone: Comment on above: Room air 09-06-2022 10:26-0400 Systolic blood pressure 108 mm[Hg] Brittney Nolan [facility]; [facility] Work Phone: Comment on above: Patient Position: Sitting; Cuff Location : Left Arm; Cuff Size: Standard 07-06-2022 09:45-0400 Body height 165.74 cm Brittney Nolan [facility]; [facility] Work Phone: 07-06-2022 09:45-0400 Body mass index (BMI) [Ratio] 24.44 kg/m2 Brittney Manmem[facility] health systemrajesh [facility]; [facility] Work Phone: 07-06-2022 09:45-0400 Body surface area Derived from formula 1.75 m2 [facility]; [facility] Work Phone: 07-06-2022 09:45-0400 Body temperature 98.3 [degF] [facility]; [facility] Work Phone: Comment on above: Method: Thermal Scan 07-06-2022 09:45-0400 Body weight 67.13 kg [facility]; [facility] Work Phone: 07-06-2022 09:45-0400 Diastolic blood pressure 68 mm[Hg] Brittney Nolan [facility]; [facility] Work Phone: Comment on above: Patient Position: Sitting; Cuff Location : Left Arm; Cuff Size: Standard 07-06-2022 09:45-0400 Heart rate 58 /min Brittneylydia Nolan [facility]; [facility] Work Phone: Comment on above: Pattern: Regular 07-06-2022 09:45-0400 Respiratory rate 16 /min [facility]; [facility] Work Phone: Comment on above: Pattern: Unlabored 07-06-2022 09:45-0400 SaO2% (BldA) [Mass fraction] 99 % [facility]; [facility] Work Phone: Comment on above: Room air 07-06-2022 09:45-0400 Systolic blood pressure 108 mm[Hg] Brittney Nolan [facility]; [facility] Work Phone: Comment on above: Patient Position: Sitting; Cuff Location : Left Arm; Cuff Size: Standard 09-20-2021 08:07-0400 Body temperature 98.4 [degF] Kita Athy PA-C Work Phone: [facility] 09-20-2021 08:07-0400 Body weight 67.77 kg Kita Athy PA-C Work Phone: [facility] 09-20-2021 08:07-0400 Diastolic blood pressure 64 mm[Hg] Kita Athy PA-C Work Phone: [facility] 09-20-2021 08:07-0400 Heart rate 88 /min Kita Athy PA-C Work Phone: [facility] 09-20-2021 08:07-0400 Respiratory rate 16 /min Kita Athy PA-C Work Phone: [facility] 09-20-2021 08:07-0400 SaO2% (BldA) [Mass fraction] 98 % Kita Athy PA-C Work Phone: [facility] 09-20-2021 08:07-0400 Systolic blood pressure 122 mm[Hg] Kita Athy PA-C Work Phone: [facility] Encounters Encounter Date Encounter Type Care Provider Facility Start: 10-05-2024 End: 10-05-[address] Heather Loyola MD -[facility] Work Phone: Start: 10-05-2024 End: 10-05-[address] Donita Payne DO Work Phone: -[facility] Start: 08-21-2024 Non-patient / Non-visit Dr. Izabella waller MD -[facility] Work Phone: Start: 01-11-2024 End: 01-11-2024 ambulatory Donita Fast Facility:[facility] Start: 11-12-2022 End: 11-14-2022 Patient encounter procedure Donita A Fast DO Work Phone: [facility] Work Phone: Start: 11-12-2022 Review Donita Fast DO Work Phone: [facility] Start: 10-08-2022 End: 10-08-2022 Phone Encounter Donita Fast DO Work Phone: [facility] Start: 09-23-2022 End: 09-23-2022 ambulatory [facility] Work Phone: Start: 09-23-2022 End: 09-23-2022 Patient encounter procedure [facility]-Outpatient Bone Densitometry Work Phone: Start: 09-13-2022 End: 09-13-2022 Patient encounter procedure [facility]-Outpatient Breast Imaging Work Phone: Start: 09-06-2022 End: 11-12-2022 Patient encounter procedure Donita Fast DO Work Phone: [facility] Start: 09-06-2022 End: 11-12-2022 Periodic preventive med est patient 40-64yrs Donita Fast DO Work Phone: [facility] Start: 09-06-2022 Review Donita Fast DO Work Phone: [facility] Start: 09-03-2022 Review Donita Fast DO Work Phone: [facility] Start: 07-07-2022 End: 07-07-2022 Annotation/Addendum Donita Fast DO Work Phone: [facility] Start: 07-06-2022 ambulatory Donita A Fast DO [facility] Start: 07-06-2022 End: 07-06-2022 Office consultation new/estab patient 60 min Donita Fast DO Work Phone: [facility] Start: 07-06-2022 End: 07-06-2022 Preoperative state Donita A Fast DO Work Phone: [facility] Work Phone: Start: 05-07-2022 Refill Diane Luigi OSCAR.CAT HOOKER Work Phone: Gynecology Comment on above: Refill Request Start: 09-20-2021 End: 09-20-2021 Patient encounter procedure Kita Madrid PA-C Work Phone: [facility] Comment on above: Bronchitis (Primary Dx) Patient encounter procedure Samia Fleming AIRLINE RESERVATION AGENT [facility] Work Phone: Preoperative state Brittneylydia Oconnorrajesh RATTLING MACHINE TENDER [facility] Work Phone: End: 11-14-2022 Preoperative state Donita Payne DO Work Phone: [facility] Work Phone: Procedures Date Procedure Procedure Detail Performing Clinician Start: 09-23-2022 End: 09-24-2022 Dexa Bone Density Study Procedure Note: See Note; NOTES: [facility] Imaging Services [address] [place] [id number] Dexa Bone Density Study MR#: [id number] Acct: [id number] Name: EM CONTRERAS Rep #: [id number] : 1960 F 62 From: Jovanni bustos MD PCP: Dr. Donita Payne DO Status: REG CLI Study: Dexa Bone Density Study Date of Exam: 09/23/22 Exam# [id number] Ordering Dr: Donita Payne DO STUDY: DUAL ENERGY X-RAY ABSORPTIOMETRY / DXA REASON FOR EXAM: Female, 62 years old. 627.8Menopausal postmenopausal BONE DENSITY REASON FOR EXAM TECHNIQUE: Bone Mineral Density (BMD) measurements of lumbar spine and bilateral hips were obtained. COMPARISON: None. FINDINGS: Lumbar Spine (L1-L4): g/cm2 (0.965) / T-score (-1.0) / Z-score (0.6) Findings are suggestive of normal bone density with a low fracture risk. Left Femur Total: g/cm2 (1.004) / T-score (0.5) / Z-score (1.6) Left Femoral Neck: g/cm2 (0.845) / T-score (0.0) / Z-score (1.3) Right Femur Total: g/cm2 (0.925) / T-score (-0.1) / Z-score (0.9) Right Femoral Neck: g/cm2 (0.784) / T-score (-0.6) / Z-score (0.8) BD/Dexa Bone Density Study IMPRESSION: The patient is considered normal as outlined below according to World [employer] Organization (WHO) criteria with a low fracture risk. Reference Information: The T-score is the number of standard deviations above or below the standard which is normal for young adults at their peak bone mineral density. The World Health Organization (WHO) interprets the T-scores as follows: Above -1 Normal bone density Between -1 and -2.5 Osteopenia Equal to / or below -2.5 Osteoporosis As a practical clinical guideline, osteopenia may be graded as follows: Mild -1 through -1.5 Moderate -1.6 through -2.0 Severe -2.1 through -2.4 The Z-score is the number of standard deviations above or below age-matched controls. A Z-score of less than -1.5 would be considered abnormal. References: 1. NIH Osteoporosis and Related Bone Diseases www osteo.org 2. International Society for Clinical Densitometry www iscd.org 3. National Osteoporosis Foundation www nof.org Electronically Signed: Jovanni Charles MD at 13:42 EDT , CC: Dr. Donita Payne DO Kiosk Sales Representative: Signed Donita Payne DO Work Phone: Start: 09-23-2022 Dual energy X-ray absorptiometry Start: 09-13-2022 End: 09-15-2022 Kidney and Bladder Procedure Note: See Note; NOTES: [facility] Imaging Services [address] [place] [address] Kidney and Bladder MR#: [id number] Acct: [id number] Name: EM CONTRERAS Rep #: [id number] : 1960 F 62 From: Awais foss MD PCP: Dr. Donita Payne DO Status: REG CLI Study: Kidney and Bladder Date of Exam: 09/13/22 Exam# [id number] Ordering Dr: Donita Payne DO EXAM: US RETROPERITONEAL LIMITED, RENAL CLINICAL INDICATION: HISTORY OF HEMATURIA TECHNIQUE: Limited grayscale and color Doppler sonographic evaluation of the retroperitoneum was performed. COMPARISON: No relevant prior studies available. FINDINGS: RIGHT KIDNEY: Unremarkable. Right kidney measures 11.4 x 4.1 x 3.6 cm in diameter. Normal cortical echogenicity. No hydronephrosis. No shadowing calculus. No focal lesion. No perinephric collection is demonstrated. LEFT KIDNEY: Unremarkable. Left kidney measures 11.5 x 4.4 x 4.9 cm in diameter. Normal cortical echogenicity. No hydronephrosis. No shadowing calculus. No focal lesion. No perinephric collection is demonstrated. URINARY BLADDER: Bilateral ureteral jets are noted. Bladder wall thickness measures up to 3.9 mm. No bladder calculi or focal bladder wall mass. US/Kidney and Bladder IMPRESSION: Unremarkable renal ultrasound. No renal mass, renal calculus or hydronephrosis identified. Electronically Signed: Awais Cervantes MD at 22:49 EDT , CC: Dr. Donita Payne DO Kiosk Sales Representative: Signed Donita Payne DO Work Phone: Start: 09-13-2022 US urinary tract Start: 09-13-2022 Screening mammography Start: 09-13-2022 End: 09-15-2022 SCRN MAMM (CAD)W/SHALINI BILAT Procedure Note: See Note; NOTES: [facility] Imaging Services [address] [place] [address] SCRN MAMM (CAD)W/SHALINI BILAT MR#: [id number] Acct: [id number] Name: EM CONTRERAS Rep #: [id number] : 1960 F 62 From: Jovanni bustos MD PCP: Dr. Doniat Payne, DO Status: REG CLI Study: SCRN MAMM (CAD)W/SHALINI BILAT Date of Exam: 08/22 06/13 Exam# [id number] Ordering Dr: Donita Payne DO MAMMOGRAPHY - BILATERAL SCREENING REASON FOR EXAM: Female, 62 years old. Routine annual screening examination. PERTINENT HISTORY: Non-contributory. History of prior bilateral breast implants. TECHNIQUE: Digital bilateral breast shalini (3D mammographic acquisition) in the CC and MLO projections. 2-D mediolateral oblique (MLO) and craniocaudad (CC) views of both breasts were obtained. CAD: Full Field Digital Mammography with Computer Added Detection was performed. COMPARISON: Comparison is made with prior study dated February 06, 2013. FINDINGS: Breast Composition: There are scattered areas of fibroglandular density. There are no dominant masses or suspicious calcifications. Stable appearance of the bilateral breast implants. No other significant abnormalities are identified. There has been no significant change since the prior study. BI/SCRN MAMM (CAD)W/SHALINI BILAT IMPRESSION: Stable bilateral screening mammogram. Yearly follow-up mammogram recommended. (A) ASSESSMENT CATEGORY: BIRADS Category 2: Benign. A letter regarding these results will be sent to the patient by the facility within 30 days. Approximately 10% of breast cancers are not detected by mammography. A normal mammogram should not delay biopsy of a clinically suspicious abnormality. [id number] Electronically Signed: Jovanni Charles MD at 15:01 EDT , CC: Dr. Donita Payne DO Kiosk Sales Representative: Signed Donita Payne DO Work Phone: Start: 11-22-2019 Mammography Kita Madrid PA-C Work Phone: Start: 10-15-2014 Colonoscopy Kita Madrid PA-C Work Phone: section Donita A Fas t DO Work Phone: Comment on above: x3 section Brittney Man fabriziok RATTLING MACHINE TENDER Comment on above: x3 section Brittney Man chak RATTLING MACHINE TENDER Comment on above: x3 ovarian cyst rupture Donita A Fast DO Work Phone: ovarian cyst rupture Brittney Anastasiak RATTLING MACHINE TENDER ovarian cyst rupture Brittney Anastasiak RATTLING MACHINE TENDER Tonsillectomy Donita A Fast D O Work Phone: Tonsillectomy Brittney Anastasia k RATTLING MACHINE TENDER Tonsillectomy Brittney Anastasia k RATTLING MACHINE TENDER Plan of Treatment Date Care Activity Detail Author Start: 08-28-2026 Urine microalbumin profile DTAP,TDAP,TD (2 - Td or Tdap) [facility] Start: 11-21-2024 HPV TESTING HPV TESTING [facility] Start: 11-21-2024 PAP TESTING PAP TESTING [facility] Start: 10-15-2024 Colonoscopy COLONOSCOPY [facility] Start: 10-15-2024 COLORECTAL CANCER SCREENING COLORECTAL CANCER SCREENING [facility] Start: 11-12-2022 Procedure Education Eprescribed prescriptions (G8553) [facility] Work Phone: Start: 11-12-2022 C-reactive protein C-REACTIVE PROTEIN (11202) [facility]; [facility] Work Phone: Start: 11-12-2022 Sedimentation rate rbc non-automated ESR-F (SED RATE ERYTHROCYTE - FEMALE) (22141) [facility]; [facility] Work Phone: Start: 10-13-2022 LIPID SCREEN LIPID SCREEN [facility] Start: 09-06-2022 Procedure Education Eprescribed prescriptions (G8553) [facility]; [facility] Work Phone: Start: 09-06-2022 Provider Instructions for Treatment [facility]; [facility] Work Phone: Start: 09-06-2022 Culture bct isol&prsmptv id isolate ea urine URINE TASIA CULTURE-IDENTIFICATN (33095) [facility]; [facility] Work Phone: Start: 09-06-2022 Hpv, dna, amp probe HPV automatic (17737) [facility]; [facility] Work Phone: Start: 07-07-2022 Comprehensive metabolic panel METABOLIC PANEL, COMPREHENSIVE (36679) [facility]; [facility] Work Phone: Start: 07-06-2022 Procedure Education Eprescribed prescriptions (G8553) [facility]; [facility] Work Phone: Start: 07-06-2022 Assay of thyroid stimulating hormone tsh TSH (92971) [facility]; [facility] Work Phone: Start: 07-06-2022 CBC, PLATELETS & MANUAL DIFF (98457) CBC, PLATELETS & MANUAL DIFF (81529) [facility]; [facility] Work Phone: Start: 07-06-2022 Comprehensive metabolic panel METABOLIC PANEL, COMPREHENSIVE (40505) [facility]; [facility] Work Phone: Start: 02-21-2022 DEPRESSION ASSESSMENT DEPRESSION ASSESSMENT [facility] Start: 10-22-2021 Influenza vaccination INFLUENZA (#1) [facility] Start: 11-21-2020 Mammography MAMMOGRAM [facility] Start: 10-13-2020 DIABETES SCREEN DIABETES SCREEN [facility] Start: 2005 COLOGUARD (FIT-DNA) COLOGUARD (FIT-DNA) [facility] Start: [address] COLONOGRAPHY [facility] Start: 2005 FECAL OCCULT BLOOD FECAL OCCULT BLOOD [facility] Start: 2005 SIGMOIDOSCOPY SIGMOIDOSCOPY [facility] Start: 1972 Adult depression screening assessment DEPRESSION SCREENING [facility] Start: 1960 COVID-19 VACCINE (#1) COVID-19 VACCINE (#1) [facility] Work Phone: [facility] Work Phone: [facility] Work Phone: [facility] Work Phone: [facility] Work Phone: Immunizations Immunization Date Immunization Notes Care Provider Fa paulina 11-22-2019 influenza, injectabl e, quadrivalent, contains preservative Kita Athy PA-C Work Phone: [facility] 04-15-2019 zoster vaccine recombinant Kita Athy PA-C Work Phone: [facility] Work Phone: 03-07-2019 zoster vaccine recombinant Kita Athy PA-C Work Phone: [facility] 02-05-2019 zoster vaccine recombinant Kita Athy PA-C Work Phone: [facility] Work Phone: 08-28-2016 tetanus toxoid, redu camille diphtheria toxoid, and acellular pertussis vaccine, adsorbed Kita Athy PA-C Work Phone: [facility] Payers Date Payer Category Payer Self-pay [id number] 2023 Unknown [id number] 2019 Unknown [employer] [id number] 2019-Present [phone] [address] [place] [address] PPO [id number] 2019 Unknown [id number] 1960 Unknown [id number] Unknown [id number] Unknown [facility] [employer] . [id number] Unknown [id number] Unknown [id number] Social History Date Type Detail Facility Start: 04-13-2013 End: 10-05-2024 Tobacco smoking status NHIS Never smoked tobacco [facility] Work Phone: Start: 04-13-2013 Tobacco use and exposure Smokeless tobacco non-user [facility] Work Phone: Start: 09-20-2021 Alcohol intake Current drinke r of alcohol (finding) [facility] Start: 08-26-2014 History SDOH Alcohol Comment Wine-6-8 gl per week [facility] Start: 1960 Sex Assigned At Not on file [facility] Alcohol Use Alcohol Use [facility] Work Phone: Comment on above: glass of wine about 4 days a week roughly 2 cups of co ffee a day max Tobacco use: Tobacco use: [facility] Work Phone: Start: 1960 Sex Assigned At Female [facility] Clinical Notes 08-21-2014 to 05-12-2022 Telephone Encounter - Delores Figueroa RN - 05/12/2022 3:23 PM EDTCandrei Madrid PA-C - 09/20/2021 9:57 AM EDT Note Date & Type Note Facility 05-12-2022 Miscellaneous Notes Formattin g of this note might be different from the original. Pt has not been seen since 2020. Delores Figueroa RN May 12, 2022 3:38 PM documented in this encounter [facility] 09-20-2021 History of Presen t illness Narrative This note was created using [email or web address]. Subjective Em Contreras is a 61 year old female. HPI Patient presents with cough and congestion over the past week. She states the cough does keep her up at night. She has tried Mucinex DM [id number]-[id number] without relief. No chest pain or shortness of breath. She has had a headache as well. No fever. No vomiting or diarrhea. She did take 3 at home COVID test which were all negative. Her granddaughter had URI symptoms recently as well prior to her getting sick. She has had COVID and is vaccinated. Review of Systems Constitutional: Negative for fever. HENT: Positive for congestion and sore throat. Respiratory: Positive for cough. Negative for chest tightness, shortness of breath and wheezing. Cardiovascular: Negative. Gastrointestinal: Negative. Genitourinary: Negative. Musculoskeletal: Negative. All other systems reviewed and are negative. PAST MEDICAL HISTORY Diagnosis Date Adenomyosis 09/2014 likely on SIS 11/2019 on US 5.6 mm endometrium BV (bacterial vaginosis) 11/2019 menopause age 54 08/2014 FSH 74 E2 7 11/2019 normal dxa Other and unspecified hyperlipidemia 08/2014 cholesterol 206 Uterine fibroid 2013 Weight gain Current Outpatient Medications Medication Sig Dispense Refill Estradiol (YUVAFEM) 10 mcg vaginal tablet USE 1 TABLET VAGINALLY twice weekly (Tuesday/) insert INTO LOWER 1/3 OF VAGINA 24 tablet 3 Cholecalciferol, Vitamin D3, 2,000 unit cap Take 1 capsule by mouth once daily. one po daily 90 capsule 4 predniSONE (DELTASONE) 20 mg tablet Take 2 tablets by mouth once daily for 5 days. 10 tablet 0 Promethazine-DM (PHENERGAN-DM) 6.25-15 mg/5 mL syrup Take 5 mL by mouth four times daily as needed. 120 mL 0 albuterol HFA (PROAIR HFA) 90 mcg/actuation inhaler Inhale 2 Puffs as instructed every 6 hours as needed. 1 Inhaler 0 doxycycline (VIBRA-TABS) 100 mg tablet Take 1 tablet by mouth twice daily for 10 days. 20 tablet 0 Estradiol (YUVAFEM) 10 mcg vaginal tablet Use 1 tablet vaginally two times a week. (Tuesday & ) at bedtime 8 tablet 0 valACYclovir (VALTREX) 500 mg tablet Take 1 tablet by mouth twice daily. FOR 5 DAYS. 10 tablet 5 metroNIDAZOLE (FLAGYL) 500 mg tablet Take 1 tablet by mouth twice daily. ONE PO BID FOR VAGINOSIS (NO ALCOHOL USE) 14 tablet 0 LACTOBACILLUS ACIDOPHILUS (PROBIOTIC ORAL) Take by mouth once daily. No current facility-administered medications for this visit. PAST SURGICAL HISTORY Procedure Laterality Date PAST SURGICAL HISTORY OF 1982, 1986, 1988 c/s x 3 PAST SURGICAL HISTORY OF 2006 breast augmentation PAST SURGICAL HISTORY OF ruptured ovarian cyst (age 16) PAST SURGICAL HISTORY OF laparoscopy-infertility workup FAMILY HISTORY Problem Relation Age of Onset Arthritis Mother ca of mouth(recent) Hyperlipidemia Mother Hypertension Mother Osteoporosis Heart Father [place] Thyroid Father Hypertension Father Dementia Father other (heart attack) Father 77 prostrate issues other (healthy) Daughter other (healthy) Daughter Prostate Cancer Maternal Grandfather other (healthy) Daughter other (healthy) Sister other (healthy) Brother other (healthy) Sister other (healthy) Brother other (healthy) Sister Social History Tobacco Use Smoking status: Never Smoker Smokeless tobacco: Never Used Substance Use Topics Alcohol use: Yes Comment: Wine-6-8 gl per week Drug use: No Objective BP 122/64 Pulse 88 Temp 36.9 C (98.4 F) Resp 16 Wt 67.8 kg (149 lb 6.4 oz) LMP 09/30/2014 SpO2 98% BMI 25.45 kg/m Physical Exam Vitals reviewed. Constitutional: Appearance: Normal appearance. HENT: Head: Normocephalic and atraumatic. Right Ear: Tympanic membrane, ear canal and external ear normal. Left Ear: Tympanic membrane, ear canal and external ear normal. Nose: Congestion present. Mouth/Throat: Mouth: Mucous membranes are moist. Pharynx: Oropharynx is clear. No oropharyngeal exudate or posterior oropharyngeal erythema. Cardiovascular: Rate and Rhythm: Normal rate and regular rhythm. Heart sounds: Normal heart sounds. Pulmonary: Effort: Pulmonary effort is normal. Breath sounds: Normal breath sounds. Musculoskeletal: Cervical back: Neck supple. Lymphadenopathy: Cervical: No cervical adenopathy. Skin: General: Skin is warm and dry. Findings: No rash. Neurological: Mental Status: She is alert. Assessment and Plan ASSESSMENT/PLAN: 1. Bronchitis - ICD9: 490, ICD10: J40 Discussed with patient this is very likely bronchitis and viral at this point. Would recommend prednisone, albuterol inhaler. She states Tessalon really does not work for her and she already tried Mucinex DM [id number]. We will send Promethazine DM to see if this helps. Follow-up with PCP if not improving. If not getting better or spikes fever I did prescribe doxycycline but told her she likely does not need this. Patient agreeable with plan. Kita Madrid PA-C documented in this encounter [facility] 08-21-2014 History of Past i llness Narrative Problem Noted Date Resolved Date Visit for gynaecologic examination 08/21/2014 11/20/2019 documented as of this encounter (statuses as of 09/20/2021) [facility]07-01-2015 History of Past illness Narrative* Problem Noted Date Resolved Date Visit for gynaecologic examination 08/21/2014 11/20/2019 documented as of this encounter (statuses as of 05/12/2022) [facility] Diagnosis Bronchitis- Primary Bronchitis, not specified as acute or chronic documented in this encounter [facility]No assessment information [facility] Work Phone: Instructions* Name Dates Details Patient Instructions Indication:Preoperative clearance Start:06-Jul-2022 Instruction Type:Provider Instructions for Treatment How to Access [employer] [facility] Online using Patient Portal and 3rd Green Party Apps Indication:Preoperative clearance Start:06-Jul-2022 Instruction Type:Patient Education [facility] Work Phone: Instructions* Name Dates Details Patient Instructions Indication:Preoperative clearance Start:06-Jul-2022 Instruction Type:Provider Instructions for Treatment How to Access Health Informa tion Online using Patient Portal and 3rd Green Party Apps Indication:Preoperative clearance Start:06-Jul-2022 Instruction Type:Patient Education [facility]; [facility] Work Phone: instructions* Name Dates Details How to Access Health Informa tion Online using Patient Portal and [employer] Green [employer] Apps Indication:BMI 24.0-24.9, adult Start:06-Sep-2022 Instruction Type:Patient Education Patient Instructions Indication:BMI 24.0-24.9, adult Start:06-Sep-2022 Instruction Type:Provider Instructions for Treatment Patient Instructions Indication:Preoperative clearance Start:06-Jul-2022 Instruction Type:Provider Instructions for Treatment How to Access Health Informa tion Online using Patient Portal and 3rd Green Party Apps Indication:Preoperative clearance Start:06-Jul-2022 Instruction Type:Patient Education [facility]; [facility] Work Phone: instructions* Name Dates Details How to Access Health Informa tion Online using Patient Portal and [employer] Apps Indication:BMI 24.0-24.9, adult Start:06-Sep-2022 Instruction Type:Patient Education Patient Instructions Indication:BMI 24.0-24.9, adult Start:06-Sep-2022 Instruction Type:Provider Instructions for Treatment Patient Instructions Indication:Preoperative clearance Start:06-Jul-2022 Instruction Type:Provider Instructions for Treatment How to Access Health Informa tion Online using Patient Portal and [employer] Apps Indication:Preoperative clearance Start:06-Jul-2022 Instruction Type:Patient Education [facility] Work Phone: Inslzkjpzumk* Name Dates Details How to Access Health Informa tion Online using Patient Portal and [employer] Apps Indication:BMI 24.0-24.9, adult Start:06-Sep-2022 Instruction Type:Patient Education Patient Instructions Indication:BMI 24.0-24.9, adult Start:06-Sep-2022 Instruction Type:Provider Instructions for Treatment Patient Instructions Indication:Preoperative clearance Start:06-Jul-2022 Instruction Type:Provider Instructions for Treatment How to Access Health Informa tion Online using Patient Portal and 3rd [employer] Apps Indication:Preoperative clearance Start:06-Jul-2022 Instruction Type:Patient Education [facility]; [facility] Work Phone: instructions* Name Dates Details Patient Instructions Indication:[facility] EXAM Start:12-Nov-2022 Instruction Type:Provider Instructions for Treatment How to Access Health Informa tion Online using Patient Portal and 3rd [employer] Party Apps Indication:[facility] Start:12-Nov-2022 Instruction Type:Patient Education How to Access Health Informa tion Online using Patient Portal and 3rd [employer] Apps Indication:BMI 24.0-24.9, adult Start:06-Sep-2022 Instruction Type:Patient Education Patient Instructions Indication:BMI 24.0-24.9, adult Start:06-Sep-2022 Instruction Type:Provider Instructions for Treatment Patient Instructions Indication:Preoperative clearance Start:06-Jul-2022 Instruction Type:Provider Instructions for Treatment How to Access Health Informa tion Online using Patient Portal and 3rd [employer] Apps Indication:Preoperative clearance Start:06-Jul-2022 Instruction Type:Patient Education [facility] Work Phone: instructions* Name Dates Details Patient Instructions Indication:[facility] Start:12-Nov-2022 Instruction Type:Provider Instructions for Treatment How to Access Health Informa tion Online using Patient Portal and 3rd [employer] Apps Indication:[facility] Start:12-Nov-2022 Instruction Type:Patient Education How to Access Health Informa tion Online using Patient Portal and 3rd [employer] Apps Indication:BMI 24.0-24.9, adult Start:06-Sep-2022 Instruction Type:Patient Education Patient Instructions Indication:BMI 24.0-24.9, adult Start:06-Sep-2022 Instruction Type:Provider Instructions for Treatment Patient Instructions Indication:Preoperative clearance Start:06-Jul-2022 Instruction Type:Provider Instructions for Treatment How to Access Health Informa tion Online using Patient Portal and 3rd [employer] Apps Indication:Preoperative clearance Start:06-Jul-2022 Instruction Type:Patient Education [facility]; [facility] Work Phone: instructions* Name Dates Details Patient Instructions Indication:[facility] Start:12-Nov-2022 Instruction Type:Provider Instructions for Treatment How to Access Health Informa tion Online using Patient Portal and 3rd [employer] Apps Indication:[facility] Start:12-Nov-2022 Instruction Type:Patient Education How to Access Health Informa tion Online using Patient Portal and 3rd [employer] Apps Indication:BMI 24.0-24.9, adult Start:06-Sep-2022 Instruction Type:Patient Education Patient Instructions Indication:BMI 24.0-24.9, adult Start:06-Sep-2022 Instruction Type:Provider Instructions for Treatment Patient Instructions Indication:Preoperative clearance Start:06-Jul-2022 Instruction Type:Provider Instructions for Treatment How to Access Health Informa tion Online using Patient Portal and 3rd [employer] Apps Indication:Preoperative clearance Start:06-Jul-2022 Instruction Type:Patient Education [facility] Work Phone: reason for referral (narrative)No [facility] for [facility]: Family History No Family History Records FoundUnknown Family Member Name Dates Details Brother 1 Comments:etoh Status:Active Brother 2 Status:Active Father Comments:dementia, cad s/p s tent 60s- dvt Status:Active Mother Comments:has had oral cancer twice, dm, hard of hearing Status:Active Sister 1 Status:Active Sister 2 Comments:twins - overweight Status:Active Unknown Family Member Name Dates Details Brother 1 Comments:etoh Status:Active Brother 2 Status:Active Father Comments:dementia, cad s/p s tent 60s- dvt Status:Active Mother Comments:has had oral cancer twice, dm, hard of hearing Status:Active Sister 1 Status:Active Sister 2 Comments:twins - overweight Status:Active Unknown Family Member Name Dates Details Brother 1 Comments:etoh Status:Active Brother 2 Status:Active Father Comments:dementia, cad s/p s tent 60s- dvt Status:Active Mother Comments:has had oral cancer twice, dm, hard of hearing Status:Active Sister 1 Status:Active Sister 2 Comments:twins - overweight Status:Active Unknown Family Member Name Dates Details Brother 1 Comments:etoh Status:Active Brother 2 Status:Active Father Comments:dementia, cad s/p s tent 60s- dvt Status:Active Mother Comments:has had oral cancer twice, dm, hard of hearing Status:Active Sister 1 Status:Active Sister 2 Comments:twins - overweight Status:Active Unknown Family Member Name Dates Details Brother 1 Comments:etoh Status:Active Brother 2 Status:Active Father Comments:dementia, cad s/p s tent 60s- dvt Status:Active Mother Comments:has had oral cancer twice, dm, hard of hearing Status:Active Sister 1 Status:Active Sister 2 Comments:twins - overweight Status:Active Unknown Family Member Name Dates Details Brother 1 Comments:etoh Status:Active Brother 2 Status:Active Father Comments:dementia, cad s/p s tent 60s- dvt Status:Active Mother Comments:has had oral cancer twice, dm, hard of hearing Status:Active Sister 1 Status:Active Sister 2 Comments:twins - overweight Status:Active Unknown Family Member Name Dates Details Brother 1 Comments:etoh Status:Active Brother 2 Status:Active Father Comments:dementia, cad s/p s tent 60s- dvt Status:Active Mother Comments:has had oral cancer twice, dm, hard of hearing Status:Active Sister 1 Status:Active Sister 2 Comments:twins - overweight Status:Active Unknown Family Member Name Dates Details Brother 1 Comments:etoh Status:Active Brother 2 Status:Active Father Comments:dementia, cad s/p s tent 60s- dvt Status:Active Mother Comments:has had oral cancer twice, dm, hard of hearing Status:Active Sister 1 Status:Active Sister 2 Comments:twins - overweight Status:Active Relationship Condition Age at Onset Recorded Date/T lee mother Arthritis Unknown Parkinson's disease Unknown Summary Purpose Advance Directives No Advanced Directives Records FoundNo Advanced Directives Records Found Chief Complaint and Reason for Visit Chief Complaint SCREENING SCREENING Chief Complaint Admit Date HRT Consult October 05, 2024 2: 54pm Additional Source Comments Source Comments (unrecognize d section and content) In the event this informatio n is protected by the Federal Confidentiality of Alcohol and Drug Abuse Patient Records regulations: The Federal rules restrict any use of the information to criminally investigate or prosecute any alcohol or drug abuse patient.[facility] the event this information is protected by the Federal Confidentiality of Alcohol and Drug Abuse Patient Records regulations: The Federal rules restrict any use of the information to criminally investigate or prosecute any alcohol or drug abuse patient.[facility] Reason for Visit (unrecogniz ed section and content) Reason Comments Cough Pt denied SOB, chest pain, Martin, chest congestion Sore Throat pain rated 5, x6 day s Reason Comments Refill Request INFORMATION SOURCE (unrecogn ized section and content) DATE CREATED AUTHOR 07/07/2022 [facility] DATE CREATED AUTHOR AUTHOR'S ORGANIZ ATION 11/13/2024 [facility] Care Teams (unrecognized sec tion and content) Team Status: Active Member Role Status Dates No Primary Care Physician Family Provider Active Dr. Donita Payne , DO Primary Care Provider Active Team Status: Inactive Member Role Status Dates Dr. Donita Payne DO Primary Care Provide r, Attending Provider, Referring Provider Active Team Status: Active Member Role/Relationship Status Dates No Primary Care Physician Family Provider Active Dr. Donita Payne , DO Primary Care Provider Active Team Status: Inactive Member Role/Relationship Status Dates Dr. Donita Payne DO Primary Care Provider Active Start: August 21, 2024 Dr. Izabella Patrick MD Attending Provider Active Start: August 21, 2024 Team Status: Inactive Member Role/Relationship Status Dates Dr. Donita Payne DO Primary Care Provider Active Start: October 05, 2024 End: October 05, 2024 Dr. Donita Payne DO Referring Provider Active St art: October 05, 2024 End: October 05, 2024 Dr. Heather Loyola MD Attending Provider Active Start: October 05, 2024 End: October 05, 2024 Goals (unrecognized section and content) Goals may be documented in a n alternate sectionGoals may be documented in an alternate section FOR RECORDS PERTAINING TO PATIENTS WHO ARE OR HAVE BEEN ENROLLED IN A CHEMICAL DEPENDENCY/SUBSTANCEABUSE PROGRAM, SOME INFORMATION MAY BE OMITTED. This clinical summary was aggregated from multiple sources. Caution should be exercised in using it in the provision of clinical care. This summary normalizes information from multiple sources, and as a consequence, information in this document may materially change the coding, format and clinical context of patient data. In addition, data may be omitted in some cases. CLINICAL DECISIONS SHOULD BE BASED ON THE PRIMARY CLINICAL RECORDS. [facility]. provides no warranty or guarantee of the accuracy or completeness of information in this document.
[2025-01-17 00:07] LABS: HPV APTIMA, High Risk Negative (Negative)
== END | disposition home or self-care (01) ==
LOC: LABSPEC 10:14
PROVIDERS: PCP Internal Medicine; Referring Provider Internal Medicine; Visit Provider Internal Medicine
DX: Z01.419 Encounter for gynecological examination (general) (routine) without abnormal findings (principal)
CPT/HCPCS: 87624; 88175; G0145

== ENCOUNTER → 2025-01-15 | Outpatient (CLI) | payer OTHER, SELFPAY ==
--- NOTE | 2025-01-15 09:03 | CT_ITS ---
PROCEDURE: LIMITED CHEST CT CARDIAC ONLY 01/15/2025 REASON FOR EXAM: ELEVATED C-REACTIVE PROTEIN (CRP) TECHNIQUE: Procedure Code: [id number] Modality: CT Procedure: LIMITED CHEST CT CARDIAC ONLY One or more dose reduction techniques were used (e.g., Automated exposure control, adjustment of the mA and/or kV according to patient size, use of iterative reconstruction technique). RADIATION DOSE SUMMARY: CTDlvol: 12.19 mGy DLP: 195.04 mGycm COMPARISON: None. CT/Limited Chest CT Cardiac Only IMPRESSION: Bilateral breast prostheses are seen, partially ruptured on the right. On axial image 63, a small nonobstructive left superior renal calculus is seen. Limited imaging of the lungs demonstrates no acute process. No pleural effusion or pneumothorax is seen in visualized areas. No adenopathy is noted. The visualized upper abdomen demonstrates no significant abnormality. Reading Location: [id number]
--- NOTE | 2025-01-15 09:14 | BI_ITS ---
EXAM: SCRN MAMM (CAD)W/SHALINI BILAT DATE: 01/15/2025 CLINICAL HISTORY: F, Age 64 y/o , BILATERAL SCREENING MAMMOGRAM - DUE AFTER 01/10/25. Patient has bilateral breast implants. TECHNIQUE: Procedure Code: [id number] Modality: MG Procedure: SCRN MAMM (CAD)W/SHALINI BILAT. Pushback Phuc CC and pushback Phuc MLO views of the right and left breasts were also performed. COMPARISON: Prior exam(s) dated 01/11/2024 and 09/13/2022. FINDINGS: TISSUE DENSITY: The breasts are heterogeneously dense, which may obscure small masses. Bilateral Breast Mammographic Findings: No significant masses, calcifications or other abnormalities are identified. Both breast implants appear to be intact without evidence of extracapsular rupture. There is a bulge along the superior aspect of both breast implants which is similar when compared to the prior exam and may represent a focal area of intracapsular rupture. There is a stable 5 mm well-circumscribed isodense mass in the superior outer aspect of the left breast. A benign-appearing stable macrocalcification is seen in the right breast upper- outer quadrant. BI/SCRN MAMM (CAD)W/SHALINI BILAT IMPRESSION: Benign screening mammogram OVERALL FINAL ASSESSMENT BI-RADS 2: BENIGN RECOMMENDATION: Routine annual follow-up in 1 Year Additional Recommendation none A letter with findings and recommendations will be mailed to the patient. Reading Location: [id number]
--- NOTE | 2025-01-15 18:02 | CA.SCORE ---
Calcium Scoring Date of Study:: 01/15/25 Indications Indications: Screening Coronary Calcium Scoring: High-resolution Computed Tomographic imaging of the chest was performed on [01/15/25 ], with particular attention paid to the coronary arteries. Images from the examination were analyzed for the presence and extent of coronary artery calcification , using coronary calcium quantification software. The patient tolerated the procedure well and there were no complications. The results of the coronary calcification analysis are provided below. Findings Coronary Artery Left Main (LM): 0 Left Anterior Descending (LAD): 0 Left Circumflex (LCX): 0 Right Coronary Artery (RCA): 0 Total Agatston Score: 0 Percentile Rankin Calcium Scoring Interpretation: Different methods to categorize the overall amount of coronary plaque. Overall amount CAC SIS Visual of coronary plaque P1 Mild -100 <2 1-2 vessels with mild amount of plaque P2 Moderate 101-300 3-4 1-2 vessels with moderate amount, 3 vessels with mild amount of plaque P3 Severe 301-999 5-7 3 vessels with moderate amount, 1 vessel with severe amount of plaque P4 Extensive >1000 >8 2-3 vessels with severe amount of plaque Conclusion: No atherosclerotic plaque noted
== END | disposition home or self-care (01) ==
LOC: CT 08:47
PROVIDERS: PCP Internal Medicine; Referring Provider Internal Medicine; Visit Provider Internal Medicine
DX: Z12.31 Encounter for screening mammogram for malignant neoplasm of breast (principal); R79.82 Elevated C-reactive protein (CRP)
CPT/HCPCS: 75571; 76380; 77063; 77067